=== PATIENT | female | born 1960 | race Caucasian/White ===

== ENCOUNTER → 2023-09-24 | Outpatient (CLI) | payer OTHER | LOC: BICMAMMO 15:00 | PROVIDERS: ATTEND Nurse Practitioner Family | DX: R92.8 Other abnormal and inconclusive findings on diagnostic imaging of breast (principal); N63.11 Unspecified lump in the right breast, upper outer quadrant; N63.23 Unspecified lump in the left breast, lower outer quadrant; N63.15 Unspecified lump in the right breast, overlapping quadrants; N60.02 Solitary cyst of left breast; N60.42 Mammary duct ectasia of left breast | CPT/HCPCS: 76642; 77066; G0279 ==

== ENCOUNTER → 2023-10-06 | Day surgery (SDC) | payer OTHER | LOC: BICULT 12:25 | PROVIDERS: ATTEND Nurse Practitioner Family | PROC: 0H9 Skin and Breast, Drainage (ICD-10-PCS; principal; 2023-10-06) | DX: C50.011 Malignant neoplasm of nipple and areola, right female breast (principal); N63.11 Unspecified lump in the right breast, upper outer quadrant | CPT/HCPCS: 19083; 88305; 88341; 88342; 88361 ==

== ENCOUNTER 2024-05-11 13:32 | Outpatient (CLI) | payer OTHER | END 2024-05-11 13:33 | disposition home or self-care (01) | LOC: BICMAMMO 13:32 | PROVIDERS: ATTEND Internal Medicine Hematology & Oncology | DX: N63.11 Unspecified lump in the right breast, upper outer quadrant (principal); R92.321 Mammographic fibroglandular density, right breast | CPT/HCPCS: G0279 ==